=== PATIENT | male | born 1935 | race Caucasian/White ===

== ENCOUNTER → 2016-10-31 | Outpatient (CLI) | payer OTHER ==
[~2016-10-31] MED LIST: GADOBUTROL 10 ML VIAL IVP ONE
== END ==
LOC: FIMAGING 09:17
DX: R22.31 Localized swelling, mass and lump, right upper limb (principal)
CPT/HCPCS: 73223; A9585

== ENCOUNTER → 2017-05-08 | Outpatient (CLI) | payer OTHER | LOC: FIMAGING 15:55 | PROVIDERS: ATTEND Radiology Diagnostic Radiology | DX: Z48.812 Encounter for surgical aftercare following surgery on the circulatory system (principal) ==

== ENCOUNTER → 2017-10-30 | Outpatient (CLI) | payer OTHER | LOC: BHFA 11:15 | PROVIDERS: ATTEND Physician Assistant | DX: I71.4 Abdominal aortic aneurysm, without rupture (principal); I25.10 Atherosclerotic heart disease of native coronary artery without angina pectoris; I63.9 Cerebral infarction, unspecified; I10 Essential (primary) hypertension; E78.5 Hyperlipidemia, unspecified; Z95.0 Presence of cardiac pacemaker ==

== ENCOUNTER → 2018-01-15 | Outpatient (CLI) | payer OTHER | LOC: BHFA 08:30 | PROVIDERS: ATTEND Internal Medicine Cardiovascular Disease | DX: I47.2 Ventricular tachycardia (principal) | CPT/HCPCS: 78452; 93017; A9500; J2785 ==

== ENCOUNTER 2018-02-07 15:51 | Emergency (ER) | payer OTHER ==
--- NOTE | 2018-02-07 16:37 | EDPHY ---
H & P Time Seen by Provider: 02/07/18 16:37 HPI/ROS: CHIEF COMPLAINT: Urinary hesitancy HISTORY OF PRESENT ILLNESS: Patient has been having symptoms for the last 3 days of trying to force urination. He has had increased urinary frequency for 10 days and then today developed chills. Of note he was hospitalized in September at the [facility] for a kidney infection. He feels like he is having difficulty emptying his bladder but tried self catheterization 2 days ago and was empty. Today he feels chilled and just very tired. Symptoms moderate. Not better worse with anything. REVIEW OF SYSTEMS: Eye: no change in vision ENT: no sore throat Cardiac: no chest pain or syncope Pulmonary: no cough or SOB Abdomen: no vomiting, diarrhea, abdominal pain Musculoskeletal: no back pain or flank pain Skin: no rash Neuro: no headache Constitutional: HPI : HPI A comprehensive 10 point review of systems is otherwise negative aside from elements mentioned in the history of present illness. PAST MEDICAL HISTORY: Prostatic hypertrophy and previous kidney infection, diabetes and hypertension, pacemaker Social history: Primary care at the [facility] General Appearance: Alert and conversant, cooperative. Eyes: No scleral icterus. ENT, Mouth: Normal mucous membranes. Respiratory: Normal respiratory effort, breath sounds equal, lungs are clear to auscultation. Cardiovascular: Regular rate and rhythm. Gastrointestinal: Abdomen is soft and non tender. Neurological: Alert, face symmetric, normal motor and sensory in extremities. Skin: Warm and dry, no rashes. Musculoskeletal: No peripheral edema. Psychiatric: Not agitated. Emergency Department course/MDM: Urinalysis positive for pyuria. Bladder scan performed. 1722: Results discussed. Patient does not want to be admitted. IV ceftriaxone 1 g, normal saline 1 L, discharge on oral Keflex. Urinary tract infection with a slightly elevated WBC, but afebrile. Not hypotensive or tachycardic. Smoking Status: Never smoked Constitutional: Initial Vital Signs Temperature (C) 37.4 C 02/07/18 15:59 Heart Rate 89 02/07/18 15:59 Respiratory Rate 16 02/07/18 15:59 Blood Pressure 140/67 H 02/07/18 15:59 O2 Sat (%) 94 02/07/18 15:59 O2 Delivery Mode Room Air Allergies/Adverse Reactions: No Known Allergies Allergy (Unverified 08/09/15 18:11) Home Medications: Medication Instructions Recorded Acetaminophen [Tylenol 325mg (*)] 650 mg PO Q4 PRN #0 tab 08/12/15 Lisinopril 5 mg PO DAILY #0 tablet 08/12/15 Cephalexin [Keflex] 500 mg PO QID #40 cap 02/07/18 Finasteride 02/07/18 Flomax 02/07/18 Medical Decision Making Differential Diagnosis: Differential for chills considered including but not limited to ENT infection, pneumonia, UTI or pyelonephritis, influenza. - Data Points Laboratory Results: Laboratory Results 02/07/18 16:28 02/07/18 16:28 02/07/18 02/07/18 02/07/18 16:28 16:28 16:05 WBC 15.38 10^3/uL H 10^3/uL (3.80-9.50) RBC 4.88 10^6/uL 10^6/uL (4.40-6.38) Hgb 15.3 g/dL g/dL (13.7-17.5) Hct 45.6 % % (40.0-51.0) MCV 93.4 fL fL (81.5-99.8) MCH 31.4 pg pg (27.9-34.1) MCHC 33.6 g/dL g/dL (32.4-36.7) RDW 12.8 % % (11.5-15.2) Plt Count 262 10^3/uL 10^3/uL (150-400) MPV 10.1 fL fL (8.7-11.7) Neut % (Auto) 89.2 % H % (39.3-74.2) Lymph % (Auto) 3.4 % L % (15.0-45.0) Phillips % (Auto) 6.8 % % (4.5-13.0) Eos % (Auto) 0.1 % L % (0.6-7.6) Baso % (Auto) 0.1 % L % (0.3-1.7) Nucleat RBC Rel Count 0.0 % % (0.0-0.2) Absolute Neuts (auto) 13.72 10^3/uL H 10^3/uL (1.70-6.50) Absolute Lymphs (auto) 0.52 10^3/uL L 10^3/uL (1.00-3.00) Absolute Monos (auto) 1.05 10^3/uL H 10^3/uL (0.30-0.80) Absolute Eos (auto) 0.02 10^3/uL L 10^3/uL (0.03-0.40) Absolute Basos (auto) 0.02 10^3/uL 10^3/uL (0.02-0.10) Absolute Nucleated RBC 0.00 10^3/uL 10^3/uL (0-0.01) Immature Gran % 0.4 % % (0.0-1.1) Immature Gran # 0.06 10^3/uL 10^3/uL (0.00-0.10) RBC/WBC/PLT Morphology TNP Platelet Estimate TNP Sodium 139 mEq/L mEq/L (135-145) Potassium 4.5 mEq/L mEq/L (3.3-5.0) Chloride 105 mEq/L mEq/L (97-110) Carbon Dioxide 23 mEq/l mEq/l (22-31) Anion Gap 11 mEq/L mEq/L (6-14) BUN 36 mg/dL H mg/dL (7-23) Creatinine 1.1 mg/dL mg/dL (0.7-1.3) Estimated GFR > 60 Glucose 128 mg/dL H mg/dL (70-100) Calcium 9.9 mg/dL mg/dL (8.5-10.4) Urine Color YELLOW Urine Appearance MODERATELY TURBID Urine pH 5.0 (5.0-7.5) Ur Specific [place] 1.014 (1.002-1.030) Urine Protein 1+ H (NEGATIVE) Urine Ketones TRACE H (NEGATIVE) Urine Blood 3+ H (NEGATIVE) Urine Nitrate NEGATIVE (NEGATIVE) Urine Bilirubin NEGATIVE (NEGATIVE) Urine Urobilinogen NEGATIVE EU EU (0.2-1.0) Ur Leukocyte Esterase 2+ H (NEGATIVE) Urine RBC 50-182 /hpf H /hpf (0-3) Urine WBC 50-182 /hpf H /hpf (0-3) Ur Epithelial Cells NONE SEEN /lpf /lpf (NONE-1+) Urine Bacteria TRACE /hpf H /hpf (NONE SEEN) Urine Mucus 1+ /lpf /lpf (NONE-1+) Urine Glucose NEGATIVE (NEGATIVE) Medications Given: Discontinued Medications Ceftriaxone Sodium/Dextrose (Rocephin 1 Gm (Premix)) 50 mls @ 100 mls/hr IV EDNOW ONE PRN Reason: Protocol Stop: 02/07/18 17:44 Last Admin: 02/07/18 17:30 Dose: 50 mls Sodium Chloride (Ns) 1,000 mls @ 0 mls/hr IV EDNOW ONE; Wide Open PRN Reason: Protocol Stop: 02/07/18 17:16 Last Admin: 02/07/18 17:32 Dose: 1,000 mls Departure - Departure Disposition: Home, Routine, Self-Care Clinical Impression: Urinary tract infection Qualifiers: Urinary tract infection type: site unspecified Hematuria presence: with hematuria Qualified Code(s): N39.0 - Urinary tract infection, site not specified Condition: Good Instructions: Urinary Tract Infection in Men (ED) Referrals: VIK HUBER [Other] - 2-3 days without fail Prescriptions: Cephalexin [Keflex] 500 mg PO QID #40 cap
[2018-02-07 16:58] LABS: PLATELET COUNT 262 10^3/uL (150-400)
[2018-02-07] MEDS ORDERED: NS 1,000 ML IV ONE (17:15)
[2018-02-07 18:25] VITALS: BP 124/72
== END 2018-02-07 18:25 | disposition home or self-care (01) ==
DX: N39.0 Urinary tract infection, site not specified (principal); E86.9 Volume depletion, unspecified; N40.1 Benign prostatic hyperplasia with lower urinary tract symptoms; E11.9 Type 2 diabetes mellitus without complications; I10 Essential (primary) hypertension; Z95.0 Presence of cardiac pacemaker
CPT/HCPCS: 96365; 99284; J0696

== ENCOUNTER 2018-03-25 19:02 | Emergency (ER) | payer OTHER ==
--- NOTE | 2018-03-25 19:18 | EDPHY ---
H & P Stated Complaint: poss UTI, urinary frequency Time Seen by Provider: 03/25/18 19:18 HPI/ROS: HPI CHIEF COMPLAINT: Urinary frequency, dysuria HISTORY OF PRESENT ILLNESS: This patient very pleasant 82-year-old male, presents to the emergency room complaining of 1 day of dysuria, urinary frequency. He believes he has a urinary tract infection. No high fever. No vomiting. No abdominal pain or flank pain. Past Medical History: History of complete heart block, hypertension, coronary artery disease, CVA Past Surgical History: No recent surgery Social History: Denies drugs alcohol tobacco. Family History: Noncontributory ROS REVIEW OF SYSTEMS: 10 Systems were reviewed and negative with the exception of the elements mentioned in the history of present illness. Exam Constitutional appears well nontoxic no acute distress triage nursing summary reviewed, vital signs reviewed, awake/alert. Eyes normal conjunctivae and sclera, EOMI, PERRLA. HENT normal inspection, atraumatic, moist mucus membranes, no epistaxis, neck supple/ no meningismus, no raccoon eyes. Respiratory clear to auscultation bilaterally, normal breath sounds, no respiratory distress, no wheezing. Cardiovascular rate normal, regular rhythm, no murmur, no edema, distal pulses normal. Gastrointestinal soft, non-tender, no rebound, no guarding, normal bowel sounds, no distension, no pulsatile mass. Genitourinary no CVA tenderness. Musculoskeletal no midline vertebral tenderness, full range of motion, no calf swelling, no tenderness of extremities, no meningismus, good pulses, neurovascularly intact. Skin pink, warm, & dry, no rash, skin atraumatic. Neurologic awake, alert and oriented x 3, AAOx3, moves all 4 extremities equally, motor intact, sensory intact, CN II-XII intact, normal cerebellar, normal vision, normal speech. Psychiatric normal mood/affect. Heme/Lymph/Immune no lymphadenopathy. Differential diagnosis includes but is not limited to and in no particular order : Bowel obstruction, appendicitis, gallbladder disease, diverticulitis, colitis , enteritis, perforated viscus, gastritis, GERD, esophagitis, urinary tract infection, pyelonephritis, kidney stones Medical Decision Making: Plan for this patient appears well nontoxic here for stable vital signs, check UA. Re-evaluation: Patient's urinalysis reviewed shows no evidence UTI. No white blood cells or red blood cells, no signs of infection. Patient did complain of urinary frequency and dysuria. No abdominal pain or back pain or flank pain. Patient otherwise feels well. Vital signs reviewed here in emergency room. He is requesting a prescription for antibiotics to hold just in case he gets worse. I will give him a prescription for Keflex. However he understands today's urinalysis did not indicate he has UTI. If he has worsening symptoms urinary frequency, dysuria I do recommend he recheck with his primary care doctor. Additionally return emergency room if worsening symptoms questions or concerns. He would like to go home. He feels well. Nontoxic appearing. Source: Patient - Personal History Current Tetanus/Diphtheria Vaccine: Yes Current Tetanus Diphtheria and Acellular Pertussis (TDAP): Yes Tetanus Vaccine Date: unknown - Medical/Surgical History Hx Asthma: No Hx Chronic Respiratory Disease: No Hx Diabetes: Yes Hx Cardiac Disease: Yes Hx Renal Disease: No Hx Cirrhosis: No Hx Alcoholism: No Hx HIV/AIDS: No Hx Splenectomy or Spleen Trauma: No Other PMH: PMH: prediabetes and prehypertension. PSH:pacemaker - Social History Smoking Status: Never smoked Constitutional: Initial Vital Signs Temperature (C) 37.7 C 03/25/18 19:10 Heart Rate 61 03/25/18 19:10 Respiratory Rate 20 03/25/18 19:10 Blood Pressure 181/85 H 03/25/18 19:10 O2 Sat (%) 90 L 03/25/18 19:10 O2 Delivery Mode Room Air Allergies/Adverse Reactions: No Known Allergies Allergy (Unverified 03/25/18 19:04) Home Medications: Medication Instructions Recorded Acetaminophen [Tylenol 325mg (*)] 650 mg PO Q4 PRN #0 tab 08/12/15 Lisinopril 5 mg PO DAILY #0 tablet 08/12/15 Finasteride 02/07/18 Flomax 02/07/18 Atorvastatin Calcium 03/25/18 Cephalexin [Keflex] 500 mg PO Q6H #28 cap 03/25/18 Vitamin B12 03/25/18 Vitamin D3 03/25/18 Medical Decision Making - Data Points Laboratory Results: 03/25/18 19:20 Urine Color YELLOW Urine Appearance HAZY Urine pH 5.0 (5.0-7.5) Ur Specific [place] 1.021 (1.002-1.030) Urine Protein NEGATIVE (NEGATIVE) Urine Ketones NEGATIVE (NEGATIVE) Urine Blood NEGATIVE (NEGATIVE) Urine Nitrate NEGATIVE (NEGATIVE) Urine Bilirubin NEGATIVE (NEGATIVE) Urine Urobilinogen NEGATIVE EU EU (0.2-1.0) Ur Leukocyte Esterase NEGATIVE (NEGATIVE) Urine Glucose NEGATIVE (NEGATIVE) Departure - Departure Disposition: Home, Routine, Self-Care Clinical Impression: Urinary frequency Condition: Good Instructions: Urinary Urgency and Frequency (DC), Dysuria (ED) Additional Instructions: 1. Make sure to drink lots of fluids stay well-hydrated 2. Antibiotics as prescribed if worse 3. Follow up with your primary care doctor. Referrals: GISELLE HUBER [Other] - As per Instructions Prescriptions: Cephalexin [Keflex] 500 mg PO Q6H #28 cap
[2018-03-25 20:01] VITALS: BP 111/95
== END 2018-03-25 20:01 | disposition home or self-care (01) ==
DX: R35.0 Frequency of micturition (principal); R30.0 Dysuria; R73.03 Prediabetes; I10 Essential (primary) hypertension; I25.10 Atherosclerotic heart disease of native coronary artery without angina pectoris; Z86.73 Personal history of transient ischemic attack (TIA), and cerebral infarction without residual deficits; Z95.0 Presence of cardiac pacemaker

== ENCOUNTER 2018-04-11 11:30 | Emergency (ER) | payer OTHER ==
[2018-04-11] MEDS ORDERED: PHENAZOPYRIDINE HCL 200 MG TAB PO ONE (13:43)
[2018-04-11] MEDS ORDERED: NITROFURANTOIN MACROBID 100 MG CAP PO ONE (13:43)
--- NOTE | 2018-04-11 13:46 | EDPHY ---
H & P Time Seen by Provider: 04/11/18 12:32 HPI/ROS: CHIEF COMPLAINT: Urinary frequency HISTORY OF PRESENT ILLNESS: Patient is a 82-year-old male who presents to the emergency department urinary frequency. Patient states he has been dealing the with this for some time and has had numerous visits to the [facility] as well as [facility]. Patient states a few weeks ago he was treated with cephalexin and this improved his symptoms. However the subsequently returned. He was given another course of cephalexin. He was also told that the bacteria from culture were not sensitive to cephalexin. Patient describes urgency the comes about every few hours. He has no dysuria frequency. No fevers or chills. No flank pain. No abdominal pain. No nausea or vomiting. REVIEW OF SYSTEMS: 10 systems were reveiwed and are negative with the exception of the elements mentioned in the history of present illness. Past Medical/Surgical History: Includes pre hypertension, prediabetes, incomplete heart park, coronary artery disease Past surgical history: Includes pacemaker above Social history: Patient does not smoke. The patient is retired windshield repair technician. Smoking Status: Never smoked Physical Exam: Vitals noted. Afebrile GENERAL: Well-appearing, in no acute distress, alert. HEENT: Eyes normal to inspection, normal pharynx, no signs of dehydration. NECK: Normal, supple. RESPIRATORY: Clear to auscultation bilaterally, no rales, rhonchi or wheezing. CVS: Regular rate and rhythm, no rubs, murmurs, or gallops. ABDOMEN: Soft, nontender, nondistended, no organomegaly. BACK: Normal to inspection, no CVA tenderness. SKIN: Normal color, no rash, warm, dry. No pallor. EXTREMITIES: No pedal edema, no calf tenderness, no Homans sign or cords, no joint swelling. NEURO/PSYCH: Alert and oriented, normal mood and affect, normal motor sensory exam. Constitutional: Initial Vital Signs Temperature (C) 36.4 C 04/11/18 11:41 Heart Rate 68 04/11/18 11:41 Respiratory Rate 18 04/11/18 11:41 Blood Pressure 141/63 H 04/11/18 11:41 O2 Sat (%) 94 04/11/18 11:41 O2 Delivery Mode Room Air Allergies/Adverse Reactions: No Known Allergies Allergy (Unverified 03/25/18 19:04) Home Medications: Medication Instructions Recorded Acetaminophen [Tylenol 325mg (*)] 650 mg PO Q4 PRN #0 tab 08/12/15 Lisinopril 5 mg PO DAILY #0 tablet 08/12/15 Finasteride 02/07/18 Flomax 02/07/18 Atorvastatin Calcium 03/25/18 Vitamin B12 03/25/18 Vitamin D3 03/25/18 Nitrofurantoin Macrobid [Macrobid] 100 mg PO BID 10 Days cap 04/11/18 Medical Decision Making ED Course/Re-evaluation: In the emergency department I discussed possible etiologies with the patient. I answered all his questions. I reviewed the patient's previous visit as well as his culture results. The patient's last urine culture showed that he was susceptible to Macrodantin. The patient was given Macrodantin and Pyridium in the emergency department. UA: Positive I discussed plan with the patient. He is instructed to take his entire course of antibiotics. He has a cystoscopy scheduled at the [facility] in 2 weeks. Differential Diagnosis: My differential includes but not limited to urinary tract infection, pyelonephritis, urinary incontinence, mass, malignancy - Data Points Laboratory Results: 04/11/18 11:45 Urine Color YELLOW Urine Appearance HAZY Urine pH 5.0 (5.0-7.5) Ur Specific [place] 1.014 (1.002-1.030) Urine Protein 1+ H (NEGATIVE) Urine Ketones NEGATIVE (NEGATIVE) Urine Blood 1+ H (NEGATIVE) Urine Nitrate NEGATIVE (NEGATIVE) Urine Bilirubin NEGATIVE (NEGATIVE) Urine Urobilinogen NEGATIVE EU EU (0.2-1.0) Ur Leukocyte Esterase 2+ H (NEGATIVE) Urine RBC 3-5 /hpf H /hpf (0-3) Urine WBC 15-25 /hpf H /hpf (0-3) Ur Epithelial Cells NONE SEEN /lpf /lpf (NONE-1+) Urine Mucus TRACE /lpf /lpf (NONE-1+) Urine Glucose NEGATIVE (NEGATIVE) Medications Given: Discontinued Medications Nitrofurantoin Macrocrystals (Macrobid) 100 mg PO EDNOW ONE PRN Reason: Protocol Stop: 04/11/18 13:44 Last Admin: 04/11/18 13:47 Dose: 100 mg Phenazopyridine HCl (Pyridium) 200 mg PO EDNOW ONE Stop: 04/11/18 13:44 Last Admin: 04/11/18 13:47 Dose: 200 mg Departure - Departure Disposition: Home, Routine, Self-Care Clinical Impression: Urinary tract infection Qualifiers: Urinary tract infection type: acute cystitis Hematuria presence: with hematuria Qualified Code(s): N30.01 - Acute cystitis with hematuria Condition: Good Instructions: Urinary Tract Infection in Men (ED) Additional Instructions: Your previous urine culture shows that that bacteria was sensitive to Macrodantin antibiotic. This is what you been given today. Take the entire course. Keep your cystostomy appointment. Return with increasing pain, fever, incontinence or any other concerns. Referrals: VIK HUBER [Other] - 5-7 days, call for appt. Darci Borden MD [Medical Doctor] - 3-4 days, if not improved Prescriptions: Nitrofurantoin Macrobid [Macrobid] 100 mg PO BID 10 Days cap
[2018-04-11 14:34] VITALS: BP 143/64
== END 2018-04-11 14:34 | disposition home or self-care (01) ==
DX: N30.01 Acute cystitis with hematuria (principal); I25.10 Atherosclerotic heart disease of native coronary artery without angina pectoris; R73.03 Prediabetes; Z95.0 Presence of cardiac pacemaker

== ENCOUNTER 2018-06-14 13:37 | Inpatient (IN) | payer OTHER ==
--- NOTE | 2018-06-14 15:07 | EDPHY ---
H & P Stated Complaint: dysuria r flank pain with hx freq uti Time Seen by Provider: 06/14/18 14:53 HPI/ROS: CHIEF COMPLAINT: Dysuria, right flank pain HISTORY OF PRESENT ILLNESS: 82-year-old male presents with dysuria and right flank pain. Onset of right flank pain week ago. The flank pain worsens with urination and is intermittent. Associated with a 2 day history of dysuria. History of frequent UTIs, most recently in April 2018. Urine culture revealed Staph epidermidis. Was treated with Macrodantin with relief in symptoms. Has an appointment with Dr. Borden tomorrow. No fever or vomiting. REVIEW OF SYSTEMS: complete 10 point ROS reviewed and is negative except for the noted elements in the HPI - Personal History Current Tetanus Diphtheria and Acellular Pertussis (TDAP): Yes Tetanus Vaccine Date: unknown - Medical/Surgical History Hx Asthma: No Hx Chronic Respiratory Disease: No Hx Diabetes: No Hx Cardiac Disease: Yes Hx Renal Disease: No Hx Cirrhosis: No Hx Alcoholism: No Hx HIV/AIDS: No Hx Splenectomy or Spleen Trauma: No Other PMH: PMH: prediabetes and prehypertension. PSH:pacemaker - Social History Smoking Status: Never smoked - Physical Exam Exam: General Appearance: Alert, pleasant, nontoxic Eyes: Pupils equal and round, no conjunctival pallor ENT, Mouth: Mucous membranes moist Neck: Normal inspection Respiratory: Lungs are clear to auscultation Cardiovascular: Regular rate and rhythm Gastrointestinal: Abdomen is soft and nontender Back: No CVA tenderness Neurological: A&O, nonfocal, normal gait Skin: Warm and dry Extremities: Normal inspection Psychiatric: Mood and affect normal Constitutional: Initial Vital Signs Temperature (C) 36.7 C 06/14/18 13:50 Heart Rate 105 H 06/14/18 13:50 Respiratory Rate 18 06/14/18 13:50 Blood Pressure 149/96 H 06/14/18 13:50 O2 Sat (%) 92 06/14/18 13:50 O2 Delivery Mode Room Air Allergies/Adverse Reactions: No Known Allergies Allergy (Verified 06/14/18 17:57) Home Medications: Medication Instructions Recorded Acetaminophen [Tylenol 325mg (*)] 650 mg PO Q4 PRN #0 tab 08/12/15 Alfuzosin HCl [Alfuzosin HCl ER] 10 mg PO DAILY 06/14/18 Aspirin EC [Aspirin EC 81 mg (*)] 81 mg PO DAILY 06/14/18 Cholecalciferol Vit D3 [Vitamin D3 2,000 units PO DAILY 06/14/18 (*)] Cyanocobalamin (Vitamin B-12) 1,000 mcg PO DAILY 06/14/18 [Vitamin B-12] Finasteride [Proscar 5 MG (*)] 5 mg PO DAILY 06/14/18 Ipratropium 0.03% Nasal [Atrovent 2 sprays EACHNARE DAILY 06/14/18 0.03% Nasal (*)] Lisinopril [Zestril 20 mg (*)] 10 mg PO DAILY 06/14/18 Medical Decision Making - Diagnostics Imaging Results: Abdomen/Pelvis CT 06/14/18 15:04 Impression: Right distal ureteral obstruction possibly secondary to a bladder urothelial abnormality. Recommend cystoscopy and possible retrograde ureterography for further evaluation. No urinary tract calcification is identified. Results discussed with Dr. Franks at 4:48 PM. Imaging: Discussed imaging studies w/ call center consultant Radiologist ED Course/Re-evaluation: This patient presents with a recurrent urinary tract infection. Urine culture was sent. Prior urine culture positive for Staph epidermidis, sensitive to tetracycline, Macrodantin and vancomycin. CT scan of the abdomen pelvis was ordered without contrast to rule out kidney stone. Prior creatinine 1.1, repeat chemistry ordered today. Bladder scan: 182, no urinary retention. CT scan reveals a distal ureteral obstruction, no kidney stone. Results discussed with the patient. Rocephin 1 g IV given for UTI with obstructive uropathy. The hospitalist service was consulted for admission. Dr. Rinaldi was consulted and will see the patient in the hospital. Differential Diagnosis: includes though not limited to pyelonephritis, urinary retention, kidney stone, AAA - Data Points Laboratory Results: Laboratory Results 06/14/18 15:35 06/14/18 15:35 Microbiology Results: MICROBIOLOGY 06/14/18 13:40 Urine,Clean Catch Urine Culture - Preliminary Staphylococcus Epidermidis Medications Given: Acetaminophen (Tylenol) 650 mg PO Q4 PRN PRN Reason: Pain, Mild/Fever, Can Take PO Stop: 12/11/18 19:53 Last Admin: 06/15/18 20:03 Dose: 650 mg Aspirin Buffered (Aspirin Ec) 81 mg PO DAILY HERNANDEZ Stop: 12/12/18 08:59 Last Admin: 06/15/18 10:21 Dose: 81 mg Enoxaparin Sodium (Lovenox) 40 mg [place] DAILY HERNANDEZ Stop: 12/12/18 08:59 Last Admin: 06/15/18 10:20 Dose: 40 mg Finasteride (Proscar) 5 mg PO DAILY HERNANDEZ Stop: 12/12/18 08:59 Last Admin: 06/15/18 10:21 Dose: 5 mg Hydralazine HCl (Apresoline) 10 mg IVP Q6HRS PRN PRN Reason: SBP Greater Than 160 Stop: 12/11/18 19:50 Last Admin: 06/14/18 20:16 Dose: 10 mg Ceftriaxone Sodium/Dextrose (Rocephin 1 Gm (Premix)) 50 mls @ 100 mls/hr IV DAILY HERNANDEZ PRN Reason: Protocol Stop: 07/15/18 08:59 Last Admin: 06/15/18 10:21 Dose: 50 mls Ipratropium [place] (Atrovent 0.03% Nasal) 2 sprays EACHNARE DAILY [facility] Stop: 12/12/18 08:59 Last Admin: 06/15/18 10:20 Dose: Not Given Lisinopril (Zestril) 10 mg PO DAILY [facility] Stop: 12/12/18 08:59 Last Admin: 06/15/18 10:20 Dose: 10 mg Vitamin B Complex (Vitamin B12) 1,000 mcg PO DAILY HERNANDEZ Stop: 12/12/18 08:59 Last Admin: 06/15/18 10:22 Dose: 1,000 mcg Discontinued Medications Ceftriaxone Sodium/Dextrose (Rocephin 1 Gm (Premix)) 50 mls @ 100 mls/hr IV EDNOW ONE PRN Reason: Protocol Stop: 06/14/18 17:20 Last Admin: 06/14/18 17:24 Dose: 50 mls Miscellaneous Medication (Alfuzosin Hcl [Alfuzosin Hcl Er]) 0 mg PO DAILY [facility] Stop: 12/12/18 08:59 Last Admin: 06/15/18 10:22 Dose: 10 mg Departure - Departure Disposition: [facility] Acute Clinical Impression: Urinary tract obstruction UTI (urinary tract infection) Qualifiers: Urinary tract infection type: site unspecified Hematuria presence: without hematuria Qualified Code(s): N39.0 - Urinary tract infection, site not specified Condition: Fair
[2018-06-14 15:50] LABS: PLATELET COUNT 202 10^3/uL (150-400)
[2018-06-14] MEDS ORDERED: hydrALAZINE 20 MG/ML VIAL IVP PRN (19:51)
[2018-06-14] MEDS ORDERED: ONDANSETRON 4 MG/2 ML VIAL IVP PRN (19:54)
[2018-06-14] MEDS ORDERED: traMADol 50 MG TAB PO PRN (19:54)
[2018-06-14] MEDS ORDERED: PROMETHAZINE HCL 25 MG/ML INJ IVP PRN (19:54)
[2018-06-14] MEDS ORDERED: HYDROmorphONE/DILAUDID 1 MG/ML INJ IVP PRN (19:54)
[2018-06-14] MEDS ORDERED: oxyCODONE IR 5 MG TAB PO PRN (19:54)
[2018-06-14] MEDS: ACETAMINOPHEN 325 MG TAB PO PRN (20:15)
--- NOTE | 2018-06-14 21:06 | GHP ---
[f rep st] HISTORY AND PHYSICAL DATE OF ADMISSION: 06/14/2018 CHIEF COMPLAINT: Dysuria. HISTORY: The patient is an 82-year-old male who has been having right flank pain for the last 4 days . Two days ago, he developed dysuria. He has a known history of BPH with urinary retention. He has been seeing Dr. Borden as an outpatient. He had a cystoscopy 2 weeks ago, but does not yet know the result as he had an appointment to see Dr. Borden tomorrow in the office to discuss results. He denie s any fever. The right flank pain comes and goes in waves. He has a history of recurrent UTIs. PAST MEDICAL HISTORY: 1. Stroke. 2. Complete heart block status post pacemaker. 3. Hypertension. 4. Coronary artery disease, status post stent 2015. 5. Abdominal aortic aneurysm status post endovascular repair. 6. BPH with urinary retention. 7. Recurrent UTIs. MEDICATIONS: Please see computerized record for full detailed list. ALLERGIES: No known drug allergies. SOCIAL HISTORY: No smoking. No alcohol. Lives alone. REVIEW OF SYSTEMS: Complete review of systems was obtained. Review of systems negative regarding co nstitutional, HEENT, GI, pulmonary, vascular, , hematology, skin, muscular, endocrine, psych except for positives and negatives as noted in HPI. FAMILY HISTORY: Reviewed and noncontributory to presenting complaint. PHYSICAL EXAMINATION: GENERAL: Well-developed, well-nourished male, in no distress. VITAL SIGNS: Temperature is 36.8, pulse 105, blood pressure 155/94, satting 94% on room air. EYES: Normal conjun ctivae. Pupils react to light. ENT: Normal ears and nose. Hearing intact. Normal lips and teeth. Oropharynx moist. NECK: Trachea midline. No thyromegaly. CHEST: Normal respiratory effort. ZACARIAS NGS: Clear to auscultation bilaterally. CARDIOVASCULAR: Regular rhythm. No murmur. No extremity edema. ABDOMEN: Soft, nontender. No hepatomegaly. SKIN: Warm, dry, intact. No rash. MUSCULOSKE LETAL: No cyanosis or clubbing. Strength 5/5 upper and lower extremities. NEUROLOGIC: Cranial ner ves intact. Normal sensation to light touch. PSYCH ASSESSMENT: Alert and oriented x3. Normal mood and affect. Normal judgment and insight. Normal memory. LABS: White count 12.89, hematocrit 44.1, platelets 202. Sodium 137, potassium 4.3, chloride 108, b icarb 23, BUN 29, creatinine 1.0, glucose 120. Urinalysis shows 50-182 white blood cells. This case was discussed with Dr. Franks, emergency room provider, regarding ER course. She consulted Urology. CT scan of the abdomen and pelvis shows a right distal ureter obstruction secondary to a bladder abno rmality. ASSESSMENT AND PLAN: 1. Urinary tract infection. Will continue the intravenous ceftriaxone pending culture. 2. Obstructed right distal ureter secondary to a bladder abnormality resulting in intermittent right flank pain. The patient had a cystoscopy with Dr. Borden 2 weeks ago. The results are unknown. I d oubt he will need a repeat cystoscopy. We will await urology consultation tomorrow morning. They ibarra ve been called. 3. Benign prostatic hypertrophy with urinary retention. Continue alfuzosin and Proscar. Will follo w bladder scans. The patient has required a Pino catheter and intermittent self-catheterization in the past, but he is not currently on any of this. 4. Coronary artery disease status post stent 2016. Continue aspirin. 5. Hypertension. Continue lisinopril. 6. Pacemaker due to complete heart block. CODE STATUS: Full. ADMISSION STATUS: Will admit to observation. Reevaluate tomorrow regarding ongoing need for hospita lization. DVT PROPHYLAXIS: He is high risk. Will place on subcu Lovenox. /[id number]/MODL
[2018-06-15 04:57] LABS: PLATELET COUNT 189 10^3/uL (150-400)
--- NOTE | 2018-06-15 08:40 | SOAPPROG ---
SOAP Progress Note Assessment/Plan: Assessment: UTI (urinary tract infection) Acute HD#1, labs reviewed and culture pending. UDS to be discussed in future Plan: Continue antibx, await culture, need assess LUTS in future with discussion of UDS , cysto and rx options of rx. Has OAB, BPH with obst and urge incontinence 06/15/18 18:21 Subjective: discussed issues related to being admitted Objective: Vital Signs Temp Pulse Resp BP Pulse Ox 38.0 C 64 18 128/65 H 93 06/15/18 07:18 06/15/18 07:18 06/15/18 07:18 06/15/18 07:18 06/15/18 07:18 Laboratory Results 06/15/18 04:25 06/14/18 06/15/18 06/16/18 05:59 05:59 05:59 Intake Total 550 Output Total 550 Balance 0 Physical Exam - Physical Exam General Appearance: alert Respiratory: No respiratory distress Cardiac/Chest: regular rate, rhythm Abdomen: soft Back: No CVA tenderness Extremities: No calf tenderness, No Maria Eugenia's sign Neuro/Psych: alert, oriented x 3 ICD10 Worksheet Patient Problems: Problems Problem Status Onset UTI (urinary tract infection) Acute CVA (cerebral vascular accident) Acute - ICD10 Problem Qualifiers (1) UTI (urinary tract infection)
[2018-06-15] MEDS ORDERED: Alfuzosin Hcl [Alfuzosin Hcl Er] 10 MG PO SCH (09:00)
[2018-06-15] MEDS ORDERED: IPRATROPIUM 0.03% NASAL SPRAY EACHNARE SCH (09:00)
[2018-06-15] MEDS: ENOXAPARIN 40 MG/0.4 ML SYR SC SCH (10:20)
[2018-06-15] MEDS: LISINOPRIL 20 MG TAB PO SCH (10:20)
[2018-06-15] MEDS: FINASTERIDE 5 MG TAB PO SCH (10:21)
[2018-06-15] MEDS: ASPIRIN EC 81 MG TAB PO SCH (10:21)
[2018-06-15] MEDS: CYANO/VITAMIN B12 1000 MCG TAB PO SCH (10:22)
--- NOTE | 2018-06-15 10:33 | PDMN ---
Medical Necessity Medical necessity: MCG M300 UTI, A-2 days: 82 yo presents w/ R flank pain and dysuria in setting of recurrent UTIs and BPH w/ urinary retention s/p cystoscopy , results unknown. Eval reveals +UTI and obstructed R distal ureter secondary to bladder abnormality. Tachy on admission, temp overnight 39.2C. Urology consult. IV antibx. Urine Cx pending. Anticipate>2MN for ongoing management and tx of the above. Hx stroke, complete hert block/pacer, HTN, CAD/stent 2015 , AAA repair, BPH w/ urinary retention, recurrent UTIs.
--- NOTE | 2018-06-15 16:10 | ASMTCMCOM ---
CM Note CM Note Notes: Patient's case discussed in daily rounds. Medical plan unclear at this time, awaiting Dr. Borden's recommendations. Patient has supportive family at bedside. Patient may benefit from [facility] follow-up pending progress. Will continue to follow. Plan: TBD Date Signed: 06/15/2018 04:10 PM Electronically Signed By:Shoshana Bang RN
--- NOTE | 2018-06-15 18:23 | HOSPPROG ---
Hospitalist Progress Note Assessment/Plan: 82yo M with BPH, prior h/o urinary retention here with LUTS c/w infection. #UTI: Recurrent issue. No prior resistant organisms in our system. - Cont ceftriaxone, f/u Ucx #Right distal ureter obstruction - Urology consulted, Dr Borden to see #BPH: Continue alfuzosin and proscar. #CAD s/p stent: Continue aspirin #HTN: On lisinopril #CHB s/p pacemaker VTE ppx: LMWH Code: full Dispo: Remain inpatient Objective: Vital Signs Temp Pulse Resp BP Pulse Ox 37.2 C 66 18 142/58 H 92 06/15/18 15:42 06/15/18 15:42 06/15/18 15:42 06/15/18 15:42 06/15/18 15:42 Laboratory Results 06/15/18 04:25 06/14/18 06/15/18 06/16/18 05:59 05:59 05:59 Intake Total 550 900 Output Total 550 Balance 0 900 ICD10 Worksheet Patient Problems: Problems Problem Status Onset UTI (urinary tract infection) Acute CVA (cerebral vascular accident) Acute
[2018-06-15] MEDS: ACETAMINOPHEN 325 MG TAB PO PRN (20:03)
--- NOTE | 2018-06-16 06:59 | SOAPPROG ---
SOAP Progress Note Assessment/Plan: Assessment: UTI (urinary tract infection) Acute HD#2, labs reviewed and culture staph epi. UDS noted obstruction with urgency and high pressure voiding , CAT scan reviewed and rt sided diverticulosis of the ascending colon, mary mesenteric / perinephric stranding, moderate BPH. No prior PSA noted in chart and ordered, will need address LUT obstruction and in light of urgency and high pressure voiding pt will need to understand possible incontinence after any surgical intervention Plan: Continue antibx, await culture final results, need assess LUTS rx in future. UDS , cysto and rx discussed, options risks discussed of rx. 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, prior PSA from 4 + years ago reported to be <4 per pt 06/16/18 07:35 Subjective: awakened pt Objective: Vital Signs Temp Pulse Resp BP Pulse Ox 36.8 C 70 16 156/56 H 93 06/16/18 04:00 06/16/18 04:00 06/16/18 04:00 06/16/18 04:00 06/16/18 04:00 Laboratory Results 06/16/18 04:20 06/15/18 06/16/18 06/17/18 05:59 05:59 05:59 Intake Total 550 1400 Output Total 550 250 Balance 0 1150 Physical Exam - Physical Exam General Appearance: alert Respiratory: No respiratory distress Cardiac/Chest: regular rate, rhythm Abdomen: soft Back: No CVA tenderness Neuro/Psych: alert, oriented x 3 ICD10 Worksheet Patient Problems: Problems Problem Status Onset UTI (urinary tract infection) Acute Urinary tract obstruction Acute CVA (cerebral vascular accident) Acute - ICD10 Problem Qualifiers (1) UTI (urinary tract infection) Qualifiers: Urinary tract infection type: site unspecified Hematuria presence: without hematuria Qualified Code(s): N39.0 - Urinary tract infection, site not specified
[2018-06-16] MEDS: ASPIRIN EC 81 MG TAB PO SCH (08:50)
[2018-06-16] MEDS: FINASTERIDE 5 MG TAB PO SCH (08:53)
[2018-06-16] MEDS: LISINOPRIL 20 MG TAB PO SCH (08:56)
[2018-06-16] MEDS: CYANO/VITAMIN B12 1000 MCG TAB PO SCH (08:56)
[2018-06-16] MEDS: ENOXAPARIN 40 MG/0.4 ML SYR SC SCH (09:03)
[2018-06-16] MEDS: Alfuzosin Hcl [Alfuzosin Hcl Er] 10 MG PO SCH ×2 (10:25→10:30)
[2018-06-16 11:36] VITALS: BP 130/76
--- NOTE | 2018-06-16 12:05 | PDDCSUM ---
Discharge Summary Discharge Summary: Date of Admission: 06/14/2018 Date of Discharge: 06/16/2018 Consultants: urology Studies: non-contrasted abdominal CT Discharge Diagnoses: 1. Staph epidermidis pyelonephritis 2. LUTS/BPH 3. Right distal ureteral obstruction 4. CAD s/p stent 5. H/o infrarenal AAA s/p aorto-biiliac stent grafting 6. Complete heart block s/p PPM Brief Hospital Course: 82yo M who has a h/o BPH with urinary retention and several UTIs since last summer presented with 4 days of right flank pain and dysuria. He was found to be febrile. UA appeared infected. He was started on IV ceftriaxone and clinically improved. Urine culture grew Staph epidermidis that was sensitive to tetracyclines and resistant to oxacillin and cefazolin. He was discharged to complete a 10 day course of doxycycline. He did not require serna catheterization during this admission. He just recently had a cystoscopy and urodynamic studies with Dr Borden as an outpatient. He is on alfuzosin and finasteride. His PSA was 1.2 while here. Medications: Please refer to EMR for complete list. I wrote prescription for doxycycline 100mg BID #14. Follow Up Plan: 1. He is in contact with a urologist to discuss management of his LUTS/BPH and ureteral obstruction Physical Exam: Vitals reviewed, afebrile. Alert and oriented, rrr, lungs clear, abdomen soft and nt, no serna, no edema.
--- NOTE | 2018-06-16 12:48 | ASMTCMCOM ---
CM Note CM Note Notes: Patient plan of care reviewed in am rounds, 82 year old male with UTI and uteral obstruction. Medically cleared for discharge. No current needs. Cm available should needs arise. Plan: Dc to home with family support and follow up. Date Signed: 06/16/2018 12:47 PM Electronically Signed By:Munira Madison RN
--- NOTE | 2018-06-16 12:49 | ASMTLACE ---
LACE Length of stay for Answers: 1 day current admission Acuity / Level of Answers: Yes Care: Did the patient have an inpatient admission? Comorbidities - select Answers: Cerebrovascular disease all that apply (CVA, TIA, aneurysms, vasc ular dementia) Coronary Artery Disease Other Notes: HTN; Recurrent UTIs # of Emergency department Answers: 3-4 visits in the last 6 months Score: 11 Date Signed: 06/16/2018 12:48 PM Electronically Signed By:Munira Madison RN
--- NOTE | 2018-06-16 12:50 | ASMTDCNOTE ---
Case Management Discharge Discharge Order Complete? Answers: Yes Family Notified Answers: Yes Discharge Comments Notes: Medically cleared for discharge. No needs, Date Signed: 06/16/2018 12:49 PM Electronically Signed By:Munira Madison RN
== END 2018-06-16 13:37 | disposition home or self-care (01) | DRG 690 ==
LOC: F1N 18:41
PROVIDERS: ADMIT Internal Medicine; ATTEND Internal Medicine
DX: N10 Acute pyelonephritis (principal); B95.7 Other staphylococcus as the cause of diseases classified elsewhere; N40.1 Benign prostatic hyperplasia with lower urinary tract symptoms; N13.5 Crossing vessel and stricture of ureter without hydronephrosis; R33.8 Other retention of urine; N39.41 Urge incontinence; R73.03 Prediabetes; I10 Essential (primary) hypertension; I25.10 Atherosclerotic heart disease of native coronary artery without angina pectoris; Z95.5 Presence of coronary angioplasty implant and graft; Z95.820 Peripheral vascular angioplasty status with implants and grafts; Z95.0 Presence of cardiac pacemaker; Z86.73 Personal history of transient ischemic attack (TIA), and cerebral infarction without residual deficits
CPT/HCPCS: 96365; 97161-GP; 97165-GO; 97530-GP; G0103; J0360; J0696; J1650

== ENCOUNTER → 2018-08-06 | Outpatient (CLI) | payer OTHER | LOC: BMCIMAGING 13:49 | PROVIDERS: ATTEND Family Medicine | DX: M25.512 Pain in left shoulder (principal) ==

== ENCOUNTER 2018-09-21 07:44 | Inpatient (IN) | payer OTHER | END 2018-09-23 12:34 | disposition home or self-care (01) | LOC: F3E 11:24 ==